=== PATIENT | female | born 1985 | race Caucasian/White ===

== ENCOUNTER 2020-12-13 14:15 | Emergency (ER) | payer BC, MEDICAID, OTHER ==
[2020-12-13 14:57] LABS: BASOPHILS # (AUTO) 0.1 10^3/uL (0.0-0.1); BASOPHILS % (AUTO) 0.7 %; EOSINOPHILS # (AUTO) 0.6 10^3/uL (0.0-0.7); EOSINOPHILS % (AUTO) 6.7 %; HCT - HEMATOCRIT 39.9 % (37.0-47.0); LYMPHOCYTES # (AUTO) 1.9 10^3/uL (1.5-3.5); MEAN CORPUSCULAR HEMOGLOBIN 30.1 pg (27.0-31.0); MEAN CORPUSCULAR HGB CONC 32.6 g/dL (32.0-36.0); MEAN CORPUSCULAR VOLUME 92.4 fL (81.0-99.0); MEAN PLATELET VOLUME 8.8 fL (7.9-10.8); MONOCYTES # (AUTO) 0.5 10^3/uL (0.0-1.0); MONOCYTES % (AUTO) 5.8 %; NEUTROPHILS # (AUTO) 5.6 10^3/uL (1.5-6.6); NEUTROPHILS % (AUTO) 64.5 %; PLT - PLATELET COUNT 233 10^3/uL (130-450); RED BLOOD COUNT 4.32 10^6/uL (4.20-5.40); WHITE BLOOD COUNT 8.7 x10^3/uL (4.8-10.8)
[2020-12-13 15:12] LABS: ALBUMIN 4.5 g/dL (3.2-5.5); ALBUMIN/GLOBULIN RATIO 1.5 (1.0-2.2); BILIRUBIN,TOTAL 0.7 mg/dL (0.2-1.0); CALCIUM 9.5 mg/dL (8.5-10.3); CREATININE 0.8 mg/dL (0.4-1.0); TOTAL PROTEIN 7.6 g/dL (6.7-8.2)
--- NOTE | 2020-12-13 16:21 | ED Physician Documentation ---
PD HPI FEMALE - Stated complaint Stated Complaint: FEMALE - Chief complaint Chief Complaint: Abd Pain - History obtained from History obtained from: Patient - Additional information Additional information: Patient comes emergency department chief complaint of onset of heavy vaginal bleeding with passage of large clots yesterday. Pad patient is status post at [facility] 1 week ago. Patient was at 7 weeks gestation with twins. Patient denies any current fever, but did develop a fever 2 days later and was started on antibiotics for endometritis. She was seen at that time in the emergency department in [place] and it was recommended that she get a follow-up ultrasound. However, she has not yet had this done. Patient states she was using tampons until this morning, when she put in a maxi pad instead, and noticed what she thought was heavier bleeding than there should be. No passage of tissue. No lower abdominal pain. No other complaints at this time. Review of Systems Ten Systems: 10 systems reviewed and negative Constitutional: reports: Reviewed and negative Eyes: reports: Reviewed and negative Ears: reports: Reviewed and negative Nose: reports: Reviewed and negative Throat: reports: Reviewed and negative Cardiac: reports: Reviewed and negative Respiratory: reports: Reviewed and negative GI: reports: Reviewed and negative : reports: Vaginal bleeding Skin: reports: Reviewed and negative Musculoskeletal: reports: Reviewed and negative Neurologic: reports: Reviewed and negative Psychiatric: reports: Reviewed and negative Endocrine: reports: Reviewed and negative Immunocompromised: reports: Reviewed and negative PD PAST MEDICAL HISTORY - Past Medical History Past Medical History: Yes Cardiovascular: Murmur Respiratory: Asthma Neuro: None Endocrine/Autoimmune: None GI: None OFFICE SERVICES COORDINATOR: Endometriosis, Other : None HEENT: None Psych: None Musculoskeletal: None Derm: None - Past Surgical History Past Surgical History: Yes /OFFICE SERVICES COORDINATOR: Other - Allergies Allergies/Adverse Reactions: Allergies Allergy/AdvReac Type Severity Reaction Status Date / Time No Known Drug Allergies Allergy Verified 12/13/20 14:37 - Social History Does the pt smoke?: No Smoking Status: Never smoker Does the pt drink ETOH?: Yes Does the pt have substance abuse?: No - Immunizations Immunizations are current?: No - POLST Patient has POLST: No PD ED PE NORMAL - Vitals Vital signs reviewed: Yes - General General: Alert and oriented X 3, No acute distress, Well developed/nourished - HEENT HEENT: Atraumatic, PERRL, EOMI, Moist mucous membranes - Neck Neck: Supple, no meningeal sign - Cardiac Cardiac: RRR, No murmur - Respiratory Respiratory: No respiratory distress, Clear bilaterally - Abdomen Abdomen: Soft, Non tender, Non distended - Derm Derm: Normal color, Warm and dry, No rash - Extremities Extremities: No deformity, No edema - Neuro Neuro: Alert and oriented X 3, rim technician 2-12 intact, Normal speech - Psych Psych: Normal mood, Normal affect Results - Vitals Vitals: Vital Signs - 24 hr 12/13/20 12/13/20 12/13/20 15:58 16:32 18:24 Temperature 37.1 C 36.8 C 36.8 C Heart Rate 62 56 L 63 Respiratory 18 16 18 Rate Blood Pressure 106/62 101/64 120/70 O2 Saturation 100 100 97 Oxygen O2 Source Room air - Labs Labs: Laboratory Tests 12/13/20 12/13/20 12/13/20 14:49 14:49 16:08 WBC 8.7 RBC 4.32 Hgb 13.0 Hct 39.9 MCV 92.4 MCH 30.1 MCHC 32.6 RDW 12.0 Plt Count 233 MPV 8.8 Neut # (Auto) 5.6 Lymph # (Auto) 1.9 [place] # (Auto) 0.5 Eos # (Auto) 0.6 Baso # (Auto) 0.1 Absolute Nucleated RBC 0.00 Nucleated RBC % 0.0 Sodium 139 Potassium 4.0 Chloride 101 Carbon Dioxide 28 Anion Gap 10.0 BUN 10 Creatinine 0.8 Estimated GFR (MDRD) 82 L Glucose 79 Calcium 9.5 Total Bilirubin 0.7 AST 17 ALT 11 Alkaline Phosphatase 43 Total Protein 7.6 Albumin 4.5 Globulin 3.1 Albumin/Globulin Ratio 1.5 Lipase 32 Urine Color YELLOW Urine Clarity CLEAR Urine pH 8.0 H Ur Specific [place] 1.015 Urine Protein NEGATIVE Urine Glucose (UA) NEGATIVE Urine Ketones NEGATIVE Urine Occult Blood LARGE H Urine Nitrite NEGATIVE Urine Bilirubin NEGATIVE Urine Urobilinogen 0.2 (NORMAL) Ur Leukocyte Esterase NEGATIVE Urine RBC TNTC H Urine WBC 0-3 Ur Squamous Epith Cells RARE Squamous Urine Bacteria None Seen Ur Microscopic Review INDICATED Urine Culture Comments NOT INDICATED - Rads (name of study) pelvic US Radiology: Final report received, EMP read indepedently, See rad report (Possible retained products, debris in the uterus. No Fetus.) PD MEDICAL DECISION MAKING - ED course Complexity details: reviewed results, re-evaluated patient, considered differential, d/w patient ED course: The patient was worked up with a CBC and pelvic ultrasound. The patient was found to have a completely normal CBC. Her ultrasound showed a very small area with some Doppler flow and complex debris within the uterus. This was howard rning for retained products. I spoke with the patient, who was still on antibiotics and he was afebrile. She is hemodynamically stable and is visiting from [place] with plan to return in 2 days. I discussed with her that at this point in time, she does not need an emergent D&C, but it is very important that she follows up in an expedited fashion with [facility] when she gets home. I have encouraged her to call tomorrow to make an appointment. Patient is agreeable to this plan. We have discussed the usual indications for return. Departure - Departure Disposition: 01 Home, Self Care Clinical Impression: Postabortion hemorrhage, Retained products of conception following Condition: Stable Instructions: ED Therapeutic Comments: Your ultrasound shows a very tiny area of debris in your uterus that still has evidence of blood flow. This is concerning for a small amount of retained products. Sometimes the body will get rid of these on its own, as it would with a miscarriage, but sometimes the products do not evacuate and this causes the vaginal bleeding can to continue. This can also be create a risk for infection of the uterus, which you already experienced. While this is not a situation that would need to be dealt with emergently tonight, it is very important that you call 1st thing in the morning to make an appointment with your [facility] in [place] to discuss further management, including possibly another procedure to evacuate the rest of the products. Please do not use tampons in the meantime, but rather, maxipads. Continue your antibiotics until the course is complete. Your blood levels are completely normal today, and there is no evidence of having lost a dangerous amount of blood. Discharge Date/Time: 12/13/20 18:26
[2020-12-13 16:22] LABS: BILIRUBIN,URINE NEGATIVE (NEGATIVE); CLARITY,URINE CLEAR (CLEAR); GLUCOSE, URINE (UA) NEGATIVE (NEGATIVE); KETONES,URINE (UA) NEGATIVE (NEGATIVE); LEUKOCYTE ESTERASE, URINE NEGATIVE (NEGATIVE); NITRITE,URINE NEGATIVE (NEGATIVE); OCCULT BLOOD,URINE LARGE (NEGATIVE); PROTEIN,URINE NEGATIVE (NEGATIVE); UROBILINOGEN,URINE 0.2 (NORMAL) E.U./dL (NORMAL)
[2020-12-13 16:34] LABS: BACTERIA,URINE None Seen /HPF (None Seen); RBC,URINE TNTC /HPF (0-5); SQUAMOUS EPITHELIAL CELL,UR RARE Squamous (<= Few); WBC,URINE 0-3 /HPF (0-5)
[2020-12-13 18:26] VITALS: BP 120/70
--- NOTE | 2020-12-13 18:26 | Ultrasound Report ---
PROCEDURE: Pelvic Complete INDICATIONS: ONSET HEAVY BLEEDING, S/P TECHNIQUE: Real-time transabdominal scanning was performed of the pelvic organs, with image documentation. COMPARISON: None FINDINGS: Uterus: Uterus is enlarged in size at 10.6 x 5.5 x 7.5 cm. Endometrium measures 26.75 mm in combine d thickness. Heterogeneous myometrial echotexture is seen. Complex leading thickened endometrium wit h heterogeneous echotexture is noted. Peripheral vascularity is also seen. 1.5 cm hypoechoic area wit hin posterior lower uterine segment which may represent a prominent nabothian cyst. Ovaries: Right ovary measures 3.4 x 2.9 x 3.1 cm in size and is within normal limits. Left ovary greta sures 3.2 x 1.5 x 2.2 cm in size and is within normal limits. Other: No free pelvic fluid. IMPRESSION: 1. Thickened and heterogeneous appearing endometrium with peripheral vascularity concerning for retai joe products given patient's history. 2. Enlarged uterus with heterogeneous myometrial echotexture. No discrete uterine fibroid is seen. Po ssible prominent nabothian cysts in lower uterine segment as above. 3. No gross abnormality is seen in bilateral ovaries. Reviewed by: Ronal Cormier MD on 12/13/2020 6:25 PM PDT Approved by: Ronal Cormier MD on 12/13/2020 6:25 PM PDT Station ID: [id number]
== END 2020-12-13 18:26 | disposition home or self-care (01) ==
LOC: ED 14:15
DX: O07.1 Delayed or excessive hemorrhage following failed attempted termination of pregnancy (principal)
CPT/HCPCS: 36415; 80053; 81001; 81003; 83690; 85025; 87086; 99284